=== PATIENT | female | born 1990 | race Caucasian/White ===

== ENCOUNTER 2022-04-08 15:32 | Emergency (ER) | payer OTHER ==
[~2022-04-08] VITALS: Ht 160 cm; Wt 61.2 kg
[2022-04-08 15:40] VITALS: BP 155/101
[2022-04-08] MEDS ORDERED: NAPR-1704 PO (20:01)
[2022-04-08 20:18] VITALS: BP 136/89
== END 2022-04-08 20:18 | disposition home or self-care (01) ==
LOC: MED 15:32
DX: S20.20XA Contusion of thorax, unspecified, initial encounter (principal); F15.10 Other stimulant abuse, uncomplicated; J45.909 Unspecified asthma, uncomplicated; Z98.890 Other specified postprocedural states; Z79.899 Other long term (current) drug therapy; X58.XXXA Exposure to other specified factors, initial encounter; Y93.89 Activity, other specified; Y92.89 Other specified places as the place of occurrence of the external cause; Y99.8 Other external cause status
CPT/HCPCS: 71111; 99283

== ENCOUNTER 2022-07-14 09:05 | Emergency (ER) | payer MEDICAID, OTHER ==
[~2022-07-14] VITALS: Ht 160 cm; Wt 65.8 kg
[~2022-07-14 09:05] MED LIST: NAPR-1704 PO
[2022-07-14 09:12] VITALS: BP 127/79
[2022-07-14] MEDS ORDERED: CLONIDINE HYDROCHLORIDE 0.1 MG TAB PO ONE (09:15)
[2022-07-14] MEDS ORDERED: NACL 0.9% 1,000 ML IV ONE (09:15)
[2022-07-14] MEDS ORDERED: ONDANSETRON 4 MG/2 ML VIAL IVP ONE (09:15)
--- NOTE | 2022-07-14 09:36 | NUR ---
PER GISELL, OK TO GIVE CLONIDINE WITH PT BP THE INDICATION IS TO MINIMIZE WITHDRAWAL S/S
--- NOTE | 2022-07-14 09:38 | NUR ---
SHI FROM [facility] NEAR [facility] C/O FENTANYL OD, PER EMS PT WAS DOWN AROUND 20MIN AND PT ROCK [employer]INGER CALLED 911, PER EMS, PT ROCK SINGER STATED THAT HE SOLD PT FENTANYL. PT WAS UNCONSCIOUS WITH AGONAL BREATHING, UNRESPONSIVE WITH A PULSE, [place] [facility] GAVE 4MG NARCAN IN, EMS GAVE 6MG IN, TOTAL 10MG. PT STATES THAT SHE "TOOK JUST ONE HIT",PT NOW VERBALLY RESPONSIVE, A/OX4. STATES BODY PAIN AT THIS TIME, RESPIRATIONS EVEN AND UNLABORED ALLERGY: LATEX, STRAWBERRY PMH: DENIES
[2022-07-14 09:43] LABS: BASOPHILS % (AUTO) 0.5 % (0.0-2.0); EOSINOPHILS # (AUTO) 0.1 K/uL (0-0.4); HEMATOCRIT 41.3 % (36-48); HEMOGLOBIN 13.8 g/dL (12.0-16.0); LYMPHOCYTES # (AUTO) 2.6 K/uL (2.5-16.5); LYMPHOCYTES % (AUTO) 35.8 % (20.5-51.1); MEAN CORPUSCULAR HEMOGLOBIN 29 pg (27-31); MEAN CORPUSCULAR HGB CONC 33 g/dL (33-37); MEAN CORPUSCULAR VOLUME 87.5 fL (80-94); MONOCYTES # (AUTO) 0.7 K/uL (0.8-1.0); MONOCYTES % (AUTO) 9.3 % (1.7-9.3); NEUTROPHILS # (AUTO) 3.8 K/uL (1.8-7.7); NEUTROPHILS % (AUTO) 52.4 % (42.2-75.2); PLATELET COUNT (AUTO) 394 K/uL (140-450); RED BLOOD CELL COUNT(AUTO) 4.72 MIL/uL (4.20-5.40); RED CELL DISTRIBUTION WIDTH 14.1 % (11.6-13.7); WHITE BLOOD COUNT (AUTO) 7.3 K/uL (4.8-10.8)
--- NOTE | 2022-07-14 09:51 | NUR ---
X-Ray at bedside.
[2022-07-14 10:10] LABS: APPEARANCE,URINE SL CLOUDY (CLEAR); BILIRUBIN,URINE NEGATIVE (NEGATIVE); BLOOD, URINE NEGATIVE (NEGATIVE); COLOR,URINE YELLOW (YELLOW); LEUKOCYTE ESTERASE ,URINE TRACE (NEGATIVE); NITRITE, URINE NEGATIVE (NEGATIVE); PH,URINE 7.5 (5.0-9.0); UGLUCOSE 1+ (NEGATIVE)
[2022-07-14 10:23] LABS: RBC,URINE 0-5 /HPF (0-5)
[2022-07-14 10:24] LABS: WBC,URINE 16-25 (MOD) /HPF (0-5)
[2022-07-14 10:26] LABS: BARBITURATE, URINE NEGATIVE ng/ml (NEG <=200); BENZODIAZEPINE, URINE NEGATIVE ng/mL (NEG <=200); COCAINE, URINE NEGATIVE ng/mL (NEG <=300)
[2022-07-14 10:27] LABS: CANNABINOID, URINE NEGATIVE ng/mL (NEG <=50); OPIATE, URINE NEGATIVE ng/mL (NEG <=2000); PHENCYCLIDINE SCREEN,URINE NEGATIVE ng/mL (NEG <=25)
[2022-07-14 10:30] LABS: ALBUMIN 3.6 g/dL (3.4-5.0); ASPARTATE AMINOTRANSFERASE 93 U/L (15-37); CARBON DIOXIDE 26.8 mmol/L (21-32); CREATININE 0.9 mg/dL (0.6-1.3); GFR ARICAN-AMERICAN 94 mL/min (>90); GLUCOSE 132 mg/dL (74-106); TOTAL BILIRUBIN 0.1 mg/dL (0.0-1.0); UREA NITROGEN, BLOOD 12 mg/dL (7-18)
[2022-07-14] MEDS ORDERED: cephALEXin 500 MG CAP PO ONE (10:35)
[2022-07-14 10:43] LABS: ACETAMINOPHEN < 0.5 ug/ml (10-30); ANION GAP 10.8 (8-16); CHLORIDE 102 mmol/L (98-107); POTASSIUM 3.6 mmol/L (3.5-5.1); SALICYLATE < 2.8 mg/dL (2.8-20.0); SODIUM SERUM 136 mmol/L (136-145)
[2022-07-14 11:14] VITALS: BP 106/60
[2022-07-14] MEDS ORDERED: CEPH-588 PO (11:45)
[2022-07-14] MEDS ORDERED: ONDA-188 PO (11:45)
[2022-07-14] MEDS ORDERED: NALO4SPR NS (11:45)
--- NOTE | 2022-07-14 12:05 | NUR ---
Patient discharged with v/s stable. Written and verbal after care instructions ABOUT UTI AND OPIOD OD given and explained. Patient alert, oriented and verbalized understanding of instructions. Ambulatory with steady gait. All questions addressed prior to discharge. ID band removed. Patient advised to follow up with PMD. Rx of KEFLEX, NARCAN, ZOFRAN ODT given. Patient educated on indication of medication including possible reaction and side effects. Opportunity to ask questions provided and answered. W/ HOMELESS PACKET, FOOD, PADS, AND ALCOHOL AND SUBSTANCE ABUSE PACKET
== END 2022-07-14 12:05 | disposition home or self-care (01) ==
LOC: MED 09:05
DX: T40.411A Poisoning by fentanyl or fentanyl analogs, accidental (unintentional), initial encounter (principal); F15.10 Other stimulant abuse, uncomplicated; F19.90 Other psychoactive substance use, unspecified, uncomplicated; N39.0 Urinary tract infection, site not specified; Y92.89 Other specified places as the place of occurrence of the external cause
CPT/HCPCS: 36415; 71045; 80053; 80305; 81001; 81025; 82550; 82553; 85025; 87086; 93005; 96374; 99285; G0480; G0482; J2405; Q0092; J7030

== ENCOUNTER 2022-09-02 12:42 | Emergency (ER) | payer MEDICAID ==
[~2022-09-02] VITALS: Ht 160 cm; Wt 60.8 kg
[~2022-09-02 12:42] MED LIST changes: +CEPH-588 PO; +NALO4SPR NS; +ONDA-188 PO
[2022-09-02 12:53] VITALS: BP 150/82
--- NOTE | 2022-09-02 12:54 | NUR ---
SHI FROM STREET CALLED BY PD. PT STATES SMOKING FENTANYL. PT CRYING, STATING SHE HAS "CELLULITIS". AAO4, AMBULATORY. ON ROOM AIR
[2022-09-02] MEDS ORDERED: NACL 0.9% 1,000 ML IV ONE (13:15)
[2022-09-02 13:21] LABS: BASOPHILS # (AUTO) 0.1 K/uL (0.00-0.22); BASOPHILS % (AUTO) 0.8 % (0.0-2.0); EOSINOPHILS # (AUTO) 0.2 K/uL (0-0.4); EOSINOPHILS % (AUTO) 1.5 % (0.0-4.0); HEMATOCRIT 38.8 % (36-48); LYMPHOCYTES % (AUTO) 35.7 % (20.5-51.1); MEAN CORPUSCULAR HEMOGLOBIN 29 pg (27-31); MEAN CORPUSCULAR HGB CONC 33 g/dL (33-37); MEAN CORPUSCULAR VOLUME 86.1 fL (80-94); MONOCYTES # (AUTO) 1.5 K/uL (0.8-1.0); NEUTROPHILS # (AUTO) 5.5 K/uL (1.8-7.7); PLATELET COUNT (AUTO) 438 K/uL (140-450); RED BLOOD CELL COUNT(AUTO) 4.51 MIL/uL (4.20-5.40); RED CELL DISTRIBUTION WIDTH 14.1 % (11.6-13.7); WHITE BLOOD COUNT (AUTO) 11.3 K/uL (4.8-10.8)
--- NOTE | 2022-09-02 13:25 | NUR ---
IV ESTABLISHED TO RIGHT AC WITH 20G.
[2022-09-02 13:36] LABS: ALBUMIN 3.6 g/dL (3.4-5.0); ANION GAP 14.2 (8-16); ASPARTATE AMINOTRANSFERASE 31 U/L (15-37); CARBON DIOXIDE 29.7 mmol/L (21-32); CHLORIDE 104 mmol/L (98-107); GFR ARICAN-AMERICAN 83 mL/min (>90); GLUCOSE 95 mg/dL (74-106); POTASSIUM 3.9 mmol/L (3.5-5.1); SODIUM SERUM 144 mmol/L (136-145); TOTAL BILIRUBIN 0.4 mg/dL (0.0-1.0); UREA NITROGEN, BLOOD 13 mg/dL (7-18)
[2022-09-02 13:37] LABS: SALICYLATE < 2.8 mg/dL (2.8-20.0)
[2022-09-02 13:38] LABS: ACETAMINOPHEN < 0.5 ug/ml (10-30)
[2022-09-02] MEDS ORDERED: LORazepam 2 MG/ML VIAL IVP ONE (13:50)
--- NOTE | 2022-09-02 13:55 | NUR ---
PATIENT BECOMING AGITATED, STATING SHE WANTS TO LEAVE. NOTIFIED PATIENT THAT HER HEART RATE OF 125 IS HIGH AND ADVISED TO STAY TO BE MEDICALLY TREATED. PT CONTINUES TO STATE SHE DOES NOT WANT TO STAY, STATING SHE DOES NOT HAVE ANY COMPLAINTS. KRISHD NOTIFIED
[2022-09-02 13:58] LABS: CREATINE KINASE MB 14.5 ng/mL (0-3.6)
--- NOTE | 2022-09-02 14:00 | NUR ---
PATIENT ROAD TESTED, PATIENT AMBULATED WITH STEADY GAIT. AAO4. ERMD AWARE
--- NOTE | 2022-09-02 14:05 | NUR ---
PATIENT ELOPED FROM FACILITY. DISCHARGE INSTRUCTIONS NOT GIVEN TO PATIENT. DR. BREWER NOTIFIED. PATIENT WALKED OUT OF ED IN STEADY GAIT. IV REMOVED PRIOR TO ELOPEMENT.
== END 2022-09-02 14:05 | disposition left against medical advice (07) ==
LOC: MED 12:42
DX: F11.90 Opioid use, unspecified, uncomplicated (principal); F15.10 Other stimulant abuse, uncomplicated; L03.119 Cellulitis of unspecified part of limb; J45.909 Unspecified asthma, uncomplicated; Z79.899 Other long term (current) drug therapy; Z91.040 Latex allergy status; Z91.018 Allergy to other foods
CPT/HCPCS: 71045; 80053; 82550; 82553; 85025; 93005; 96360; 99285; G0480; G0482; J2060; Q0092

== ENCOUNTER 2024-02-05 14:55 | Emergency (ER) | payer OTHER ==
[~2024-02-05] VITALS: Ht 167.6 cm; Wt 54.4 kg
[~2024-02-05 14:55] MED LIST changes: +IBUP-2213 PO
[2024-02-05 15:01] VITALS: BP 127/78; PULSE 110; RESP 0; TEMP 97.7; O2SAT 100
[2024-02-05] MEDS: ONDANSETRON 4 MG ODT PO ONE (15:35)
[2024-02-05 16:13] LABS: BASOPHILS # (AUTO) 0.1 K/uL (0.00-0.22); BASOPHILS % (AUTO) 0.8 % (0.0-2.0); EOSINOPHILS # (AUTO) 0.6 K/uL (0-0.4); EOSINOPHILS % (AUTO) 6.2 % (0.0-4.0); HEMATOCRIT 36.8 % (36-48); HEMOGLOBIN 12.3 g/dL (12.0-16.0); LYMPHOCYTES # (AUTO) 2.7 K/uL (2.5-16.5); LYMPHOCYTES % (AUTO) 27.3 % (20.5-51.1); MEAN CORPUSCULAR HEMOGLOBIN 27 pg (27-31); MEAN CORPUSCULAR HGB CONC 33 g/dL (33-37); MEAN CORPUSCULAR VOLUME 81.9 fL (80-94); MONOCYTES # (AUTO) 1.1 K/uL (0.8-1.0); MONOCYTES % (AUTO) 11.1 % (1.7-9.3); NEUTROPHILS # (AUTO) 5.3 K/uL (1.8-7.7); NEUTROPHILS % (AUTO) 54.6 % (42.2-75.2); PLATELET COUNT (AUTO) 375 K/uL (140-450); RED BLOOD CELL COUNT(AUTO) 4.49 MIL/uL (4.20-5.40); RED CELL DISTRIBUTION WIDTH 14.6 % (11.6-13.7); WHITE BLOOD COUNT (AUTO) 9.8 K/uL (4.8-10.8)
[2024-02-05 16:31] LABS: ALBUMIN 3.1 g/dL (3.4-5.0); ANION GAP 7.1 (8-16); CALCIUM 8.6 mg/dL (8.5-10.1); CARBON DIOXIDE 31.5 mmol/L (21-32); CREATININE 0.8 mg/dL (0.6-1.3); POTASSIUM 3.6 mmol/L (3.5-5.1); TOTAL BILIRUBIN 0.2 mg/dL (0.0-1.0); TOTAL PROTEIN, SERUM 6.8 g/dL (6.4-8.2)
[2024-02-05 16:50] VITALS: BP 127/78; PULSE 110; RESP 0; TEMP 97.7; O2SAT 100
== END 2024-02-05 16:50 | disposition home or self-care (01) ==
LOC: MED 14:55
DX: R11.2 Nausea with vomiting, unspecified (principal); R10.9 Unspecified abdominal pain; I10 Essential (primary) hypertension; Z91.040 Latex allergy status; Z91.018 Allergy to other foods; Z79.899 Other long term (current) drug therapy
CPT/HCPCS: 36415; 80053; 81025; 83690; 85025; 99283; Q0162

== ENCOUNTER 2024-05-22 14:04 | Emergency (ER) | payer OTHER ==
[~2024-05-22] VITALS: Ht 160 cm; Wt 53.1 kg
[2024-05-22 14:07] VITALS: BP 124/70; PULSE 92; RESP 20; TEMP 98; O2SAT 98
== END 2024-05-22 16:05 | disposition left against medical advice (07) ==
LOC: MED 14:04
DX: G47.00 Insomnia, unspecified (principal); Z53.21 Procedure and treatment not carried out due to patient leaving prior to being seen by health care provider